=== PATIENT | male | born 1970 | race Caucasian/White ===

== ENCOUNTER 2017-01-18 11:33 | Inpatient (IN) | payer SELFPAY ==
[~2017-01-18] VITALS: Ht 193 cm; Wt 111.0 kg
[2017-01-18 12:42] LABS: HEMATOCRIT 44.7 % (38.0-50.0); MCH 28.8 PG (29.0-34.0); MCHC 32.2 G/DL (30.0-36.0); MCV 89.4 FL (86-99); MEAN PLAT.VOLUME 9.3 uM^3 (9.0-12.4); PLATELET COUNT 366 K/uL (156-360); RBC DIS.WIDTH-CV 14.9 % (11.8-14.6); RBC DIS.WIDTH-SD 49.1 % (39-53); WHITE BLOOD COUNT 8.1 K/uL (4.1-10.2)
[2017-01-18 12:52] LABS: CHLORIDE 105 mEq/L (99-109); POTASSIUM 4.7 mEq/L (3.7-5.4); SODIUM 137 mEq/L (136-147)
[2017-01-18 12:54] LABS: GLUCOSE 103 mg/dL (70-99)
[2017-01-18 12:55] LABS: ANION GAP 9 MEQ/L (2-14)
[2017-01-18 12:56] LABS: TOTAL BILIRUBIN 0.6 mg/dL (0.0-1.0)
[2017-01-18 12:58] LABS: ALKALINE PHOSPHATASE 58 IU/L (3-129); GFR ESTIMATE (CALCULATED) > 59 mL/min/
[2017-01-18 12:59] LABS: UREA NITROGEN (BUN) 17 mg/dL (9-23)
[2017-01-18 14:17] LABS: INTER. NORMALIZED RATIO 1.1; PROTHROMBIN TIME 11.5 (9.2-11.2); PTT 35.2 (25-32)
[2017-01-18 15:00] LABS: ADD MIUA? NO; BILIRUBIN NEGATIVE; BLOOD NEGATIVE; COLOR YELLOW ((YELLOW)); GLUCOSE (STRIP) NEGATIVE; KETONES 5; LEUKOCYTES NEGATIVE; NITRITE NEGATIVE; PROTEIN (STRIP) NEGATIVE; SPECIFIC GRAVITY 1.045 (1.000-1.030); UCUL ADDED? NO; UROBILINOGEN 0.2 MG/DL (0.2-1.0)
[2017-01-18 15:11] LABS: AMPHETAMINE NEGATIVE (500 ng/mL); BARBITURATES NEGATIVE (200 ng/mL); BENZODIAZEPINES NEGATIVE (150 ng/mL); COCAINE PRESUMPTIVE POSITIVE (150 ng/mL); INTERNAL CONTROLS VALID? YES; METHADONE NEGATIVE (200 ng/mL); METHAMPHETAMINE NEGATIVE (500 ng/mL); OPIATES (MORPHINE) PRESUMPTIVE POSITIVE (100 ng/mL); OXYCODONE PRESUMPTIVE POSITIVE (100 ng/mL); PHENCYCLIDINE NEGATIVE (25 ng/mL); PROPOXYPHENE NEGATIVE (300 ng/mL); THC CANNABINOIDS PRESUMPTIVE POSITIVE (50 ng/mL); TRICYCLIC ANTIDEPRESSANTS NEGATIVE (300 ng/mL)
[2017-01-18 15:12] LABS: ADD MEDTOX COMMENT Y
[2017-01-18 15:18] LABS: DIRECT BILIRUBIN 0.3 mg/dL (0.0-0.3)
[2017-01-18 15:33] LABS: LIPASE > 4220 U/L (1.0-51.0)
[2017-01-18] MEDS ORDERED: VITAMIN C1000 MG PO (16:02)
[2017-01-18] MEDS ORDERED: AMINO ACID1 EACH PO (16:02)
[2017-01-18] MEDS ORDERED: DAILY VITE1 EAC1 PO (16:03)
[2017-01-18] MEDS ORDERED: B COMPLETE1 EACH PO (16:03)
[2017-01-18] MEDS ORDERED: FLAX OIL1000 MG PO (16:03)
[2017-01-18] MEDS ORDERED: GLUCOSAMINE CH1 EAC2 PO (16:03)
[2017-01-18] MEDS ORDERED: ICY HOT CREAM35.4 G1 TP (16:04)
[2017-01-18] MEDS ORDERED: ALEVE220 MG PO (16:04)
[2017-01-18] MEDS ORDERED: PROTEIN POWDER454 G1 PO (16:05)
[2017-01-18 16:53] VITALS: BP 127/58
[2017-01-18 19:18] VITALS: BP 133/63
[2017-01-18 23:53] VITALS: BP 129/67
[2017-01-19 03:58] VITALS: BP 130/66
[2017-01-19 05:55] LABS: HEMATOCRIT 38.8 % (38.0-50.0); MCH 28.6 PG (29.0-34.0); MCHC 31.4 G/DL (30.0-36.0); MCV 90.9 FL (86-99); MEAN PLAT.VOLUME 9.3 uM^3 (9.0-12.4); PLATELET COUNT 315 K/uL (156-360); RBC DIS.WIDTH-CV 15.2 % (11.8-14.6); RBC DIS.WIDTH-SD 50.4 % (39-53); RED BLOOD COUNT 4.27 M/uL (4.00-5.50); WHITE BLOOD COUNT 6.4 K/uL (4.1-10.2)
[2017-01-19 06:13] LABS: ALKALINE PHOSPHATASE 47 IU/L (3-129); ANION GAP 6 MEQ/L (2-14); CHLORIDE 108 MEQ/L (99-109); GFR ESTIMATE (CALCULATED) > 59 mL/min/; GLUCOSE 99 mg/dL (70-99); POTASSIUM 4.3 MEQ/L (3.7-5.4); SAMPLE HEMOLYSIS CHECK 0; SAMPLE ICTERIC CHECK 0; SAMPLE LIPEMIA CHECK 0; SODIUM 138 MEQ/L (136-147); TOTAL BILIRUBIN 0.4 MG/DL (0.0-1.0); UREA NITROGEN (BUN) 14 mg/dL (9-23)
[2017-01-19 07:37] VITALS: BP 118/64
[2017-01-19 11:15] VITALS: BP 119/62
[2017-01-19 15:07] VITALS: BP 139/79
[2017-01-19 19:39] VITALS: BP 123/62
[2017-01-19 23:13] VITALS: BP 142/71
[2017-01-20 04:30] VITALS: BP 122/64
[2017-01-20 05:03] LABS: HEMATOCRIT 42.1 % (38.0-50.0); MCH 28.6 PG (29.0-34.0); MCHC 31.8 G/DL (30.0-36.0); MEAN PLAT.VOLUME 8.9 uM^3 (9.0-12.4); PLATELET COUNT 391 K/uL (156-360); RBC DIS.WIDTH-CV 15.1 % (11.8-14.6); RBC DIS.WIDTH-SD 50.1 % (39-53); RED BLOOD COUNT 4.68 M/uL (4.00-5.50); WHITE BLOOD COUNT 6.1 K/uL (4.1-10.2)
[2017-01-20 05:19] LABS: CHLORIDE 106 mEq/L (99-109); POTASSIUM 4.7 mEq/L (3.7-5.4); SODIUM 140 mEq/L (136-147)
[2017-01-20 05:21] LABS: GLUCOSE 100 mg/dL (70-99)
[2017-01-20 05:23] LABS: ANION GAP 9 MEQ/L (2-14)
[2017-01-20 05:25] LABS: ALKALINE PHOSPHATASE 65 IU/L (3-129); GFR ESTIMATE (CALCULATED) > 59 mL/min/
[2017-01-20 05:26] LABS: UREA NITROGEN (BUN) 12 mg/dL (9-23)
[2017-01-20 05:28] LABS: LIPASE 138 U/L (1.0-51.0)
[2017-01-20 05:29] LABS: TOTAL BILIRUBIN 0.4 mg/dL (0.0-1.0)
[2017-01-20 08:06] VITALS: BP 133/69
[2017-01-20 15:31] VITALS: BP 128/77
[2017-01-20 20:04] VITALS: BP 134/60
[2017-01-20 23:53] VITALS: BP 134/77
[2017-01-21] VITALS (7 sets, daily range): BP systolic 123–149; BP diastolic 60–79
[2017-01-21 05:38] LABS: ALKALINE PHOSPHATASE 57 IU/L (3-129); ANION GAP 8 MEQ/L (2-14); CHLORIDE 104 MEQ/L (99-109); GFR ESTIMATE (CALCULATED) > 59 mL/min/; GLUCOSE 119 mg/dL (70-99); LIPASE 104 U/L (1.0-51.0); MCH 28.5 PG (29.0-34.0); MCHC 31.8 G/DL (30.0-36.0); MCV 89.7 FL (86-99); MEAN PLAT.VOLUME 9.2 uM^3 (9.0-12.4); PLATELET COUNT 373 K/uL (156-360); POTASSIUM 4.4 MEQ/L (3.7-5.4); RBC DIS.WIDTH-CV 14.8 % (11.8-14.6); RBC DIS.WIDTH-SD 48.5 % (39-53); RED BLOOD COUNT 4.46 M/uL (4.00-5.50); SAMPLE HEMOLYSIS CHECK 0; SAMPLE ICTERIC CHECK 0; SAMPLE LIPEMIA CHECK 0; SODIUM 139 MEQ/L (136-147); TOTAL BILIRUBIN 0.4 MG/DL (0.0-1.0); UREA NITROGEN (BUN) 13 mg/dL (9-23); WHITE BLOOD COUNT 6.9 K/uL (4.1-10.2)
[2017-01-22 04:18] VITALS: BP 137/74
[2017-01-22 05:04] LABS: CHLORIDE 105 mEq/L (99-109); POTASSIUM 4.8 mEq/L (3.7-5.4); SODIUM 139 mEq/L (136-147)
[2017-01-22 05:06] LABS: GLUCOSE 100 mg/dL (70-99)
[2017-01-22 05:07] LABS: ANION GAP 9 MEQ/L (2-14)
[2017-01-22 05:08] LABS: TOTAL BILIRUBIN 0.4 mg/dL (0.0-1.0)
[2017-01-22 05:09] LABS: ALKALINE PHOSPHATASE 62 IU/L (3-129)
[2017-01-22 05:10] LABS: GFR ESTIMATE (CALCULATED) > 59 mL/min/
[2017-01-22 05:11] LABS: UREA NITROGEN (BUN) 11 mg/dL (9-23)
[2017-01-22 05:13] LABS: LIPASE 94 U/L (1.0-51.0)
[2017-01-22 08:03] VITALS: BP 135/71
[2017-01-22 11:47] VITALS: BP 129/69
[2017-01-22 16:49] VITALS: BP 127/69
[2017-01-22 17:05] VITALS: BP 127/69
[2017-01-22 20:19] VITALS: BP 119/62
[2017-01-23] VITALS (7 sets, daily range): BP systolic 115–146; BP diastolic 56–82
[2017-01-23 05:54] LABS: ANION GAP 10 MEQ/L (2-14); CHLORIDE 100 MEQ/L (99-109); GFR ESTIMATE (CALCULATED) > 59 mL/min/; POTASSIUM 4.3 MEQ/L (3.7-5.4); SAMPLE HEMOLYSIS CHECK 0; SAMPLE ICTERIC CHECK 0; SAMPLE LIPEMIA CHECK 0; SODIUM 136 MEQ/L (136-147); UREA NITROGEN (BUN) 16 mg/dL (9-23)
[2017-01-23 05:58] LABS: GLUCOSE 155 mg/dL (70-99)
[2017-01-23 06:14] LABS: HEMATOCRIT 42.4 % (38.0-50.0); MCH 28.6 PG (29.0-34.0); MCHC 32.3 G/DL (30.0-36.0); MCV 88.5 FL (86-99); MEAN PLAT.VOLUME 9.2 uM^3 (9.0-12.4); RBC DIS.WIDTH-CV 14.9 % (11.8-14.6); RBC DIS.WIDTH-SD 48.8 % (39-53); RED BLOOD COUNT 4.79 M/uL (4.00-5.50)
[2017-01-23 06:20] LABS: PLATELET COUNT 521 K/uL (156-360); WHITE BLOOD COUNT 13.9 K/uL (4.1-10.2)
[2017-01-24 04:17] VITALS: BP 126/58
[2017-01-24 08:20] VITALS: BP 139/76
[2017-01-24 12:01] VITALS: BP 123/56
[2017-01-24 16:53] VITALS: BP 127/72
[2017-01-24 19:10] VITALS: BP 119/58
[2017-01-24 23:36] VITALS: BP 115/59
[2017-01-25 04:59] VITALS: BP 126/60
[2017-01-25 06:21] LABS: HEMATOCRIT 37.8 % (38.0-50.0); MCH 28.6 PG (29.0-34.0); MCHC 31.5 G/DL (30.0-36.0); MCV 90.9 FL (86-99); PLATELET COUNT 402 K/uL (156-360); RBC DIS.WIDTH-CV 15.4 % (11.8-14.6); RBC DIS.WIDTH-SD 51.3 % (39-53); RED BLOOD COUNT 4.16 M/uL (4.00-5.50)
[2017-01-25 06:30] LABS: WHITE BLOOD COUNT 8.1 K/uL (4.1-10.2)
[2017-01-25 06:52] LABS: ALKALINE PHOSPHATASE 55 IU/L (3-129); ANION GAP 7 MEQ/L (2-14); CHLORIDE 104 MEQ/L (99-109); GFR ESTIMATE (CALCULATED) > 59 mL/min/; LIPASE 65 U/L (1.0-51.0); POTASSIUM 4.3 MEQ/L (3.7-5.4); SAMPLE HEMOLYSIS CHECK 0; SAMPLE ICTERIC CHECK 0; SAMPLE LIPEMIA CHECK 0; SODIUM 138 MEQ/L (136-147); TOTAL BILIRUBIN 0.4 MG/DL (0.0-1.0); UREA NITROGEN (BUN) 15 mg/dL (9-23)
[2017-01-25 06:57] LABS: GLUCOSE 95 mg/dL (70-99)
[2017-01-25 07:57] VITALS: BP 128/64
[2017-01-25 11:34] VITALS: BP 127/66
[2017-01-25 16:55] VITALS: BP 143/76
[2017-01-25 21:00] VITALS: BP 152/78
[2017-01-25 23:34] VITALS: BP 132/80
[2017-01-26 04:23] VITALS: BP 141/71
[2017-01-26 08:23] VITALS: BP 133/78
[2017-01-26 12:33] VITALS: BP 131/66
[2017-01-26] MEDS ORDERED: OXYCODONE HCL5 MG PO (12:59)
[2017-01-26] MEDS ORDERED: GABAPENTIN300 MG PO (12:59)
[2017-01-26] MEDS ORDERED: OXYCONTIN15 MG PO (12:59)
[2017-01-26] MEDS ORDERED: OXYCONTIN10 MG PO (13:39)
[2017-01-26] MEDS ORDERED: PERCOCET 7.51 TABLET PO (13:39)
== END 2017-01-26 14:55 | disposition home or self-care (01) | DRG 164 ==
LOC: EME → TRA 11:33 → EME 11:33 → 3EAST 15:13 → EDOF 15:13 → 3EAST 16:39
PROVIDERS: Emergency Medicine; Surgery; Thoracic Surgery (Cardiothoracic Vascular Surgery)
DX: S27.1XXA Traumatic hemothorax, initial encounter (principal); S27.809A Unspecified injury of diaphragm, initial encounter; S22.41XA Multiple fractures of ribs, right side, initial encounter for closed fracture; W17.89XA Other fall from one level to another, initial encounter; Y92.018 Other place in single-family (private) house as the place of occurrence of the external cause; R74.8 Abnormal levels of other serum enzymes; F19.10 Other psychoactive substance abuse, uncomplicated; F11.10 Opioid abuse, uncomplicated; F14.10 Cocaine abuse, uncomplicated; F12.10 Cannabis abuse, uncomplicated; J95.811 Postprocedural pneumothorax; E88.09 Other disorders of plasma-protein metabolism, not elsewhere classified; K83.8 Other specified diseases of biliary tract; J98.11 Atelectasis; E86.0 Dehydration; R26.2 Difficulty in walking, not elsewhere classified; G89.29 Other chronic pain; M54.9 Dorsalgia, unspecified; J90 Pleural effusion, not elsewhere classified; R63.0 Anorexia; G89.18 Other acute postprocedural pain; K59.00 Constipation, unspecified
CPT/HCPCS: 70450; 71010; 71020; 71260; 72125; 72129; 72132; 74177; 74181; 80048; 80053; 81003; 82248; 83605; 83690; 84999; 85027; 85610; 85730; 86850; 86900; 86901; 99281; 99284; J0690; J1100; J1170; J1650; J1885; J2250; J2270; J2405; J2710; J3010; J7120

== ENCOUNTER 2017-06-06 19:39 | Inpatient (IN) | payer BC, OTHER ==
[~2017-06-06] VITALS: Ht 193 cm; Wt 114.5 kg
[~2017-06-06 19:39] MED LIST: ALEVE220 MG PO; AMINO ACID1 EACH PO; B COMPLETE1 EACH PO; DAILY VITE1 EAC1 PO; FLAX OIL1000 MG PO; GABAPENTIN300 MG PO; GLUCOSAMINE CH1 EAC2 PO; ICY HOT CREAM35.4 G1 TP; OXYCODONE HCL5 MG PO; OXYCONTIN10 MG PO; OXYCONTIN15 MG PO; PERCOCET 7.51 TABLET PO; PROTEIN POWDER454 G1 PO; VITAMIN C1000 MG PO
[2017-06-06 20:29] LABS: EOSINOPHIL (%) 0.8 % (0-5); EOSINOPHIL COUNT 0.1 K/uL (0-0.3); HEMATOCRIT 47.3 % (38.0-50.0); IMMATURE GRANULOCYTE (%) 0.3 % (0.0-0.7); INSTRUMENT ABS NEUTROPHIL CT 8.2 K/uL; LYMPHOCYTE COUNT 1.1 K/uL (1.0-2.8); MCHC 32.3 G/DL (30.0-36.0); MCV 86.5 FL (86-99); MEAN PLAT.VOLUME 8.9 uM^3 (9.0-12.4); MONOCYTE (%) 8.8 % (3-12); MONOCYTE COUNT 0.9 K/uL (0-0.8); NEUTROPHIL (%) 79.4 % (45-76); NEUTROPHIL COUNT 8.2 K/uL (1.8-6.4); PLATELET COUNT 275 K/uL (156-360); RBC DIS.WIDTH-CV 15.4 % (11.8-14.6); RBC DIS.WIDTH-SD 48.7 % (39-53); RED BLOOD COUNT 5.47 M/uL (4.00-5.50); WHITE BLOOD COUNT 10.4 K/uL (4.1-10.2)
[2017-06-06 20:35] LABS: CHLORIDE 102 mEq/L (99-109); POTASSIUM 4.6 mEq/L (3.7-5.4); SODIUM 137 mEq/L (136-147)
[2017-06-06 20:37] LABS: GLUCOSE 98 mg/dL (70-99)
[2017-06-06 20:38] LABS: ANION GAP 8 MEQ/L (2-14)
[2017-06-06 20:41] LABS: GFR ESTIMATE (CALCULATED) > 59 mL/min/
[2017-06-06 20:42] LABS: UREA NITROGEN (BUN) 24 mg/dL (9-23)
[2017-06-06] MEDS ORDERED: ADVIL,NUPRIN,M200 MG PO (23:18)
[2017-06-07 03:55] VITALS: BP 132/59
[2017-06-07 07:44] VITALS: BP 106/53
[2017-06-07 09:00] LABS: EOSINOPHIL COUNT 0.1 K/uL (0-0.3); HEMATOCRIT 43.1 % (38.0-50.0); IMMATURE GRANULOCYTE (%) 0.3 % (0.0-0.7); INSTRUMENT ABS NEUTROPHIL CT 4.7 K/uL; LYMPHOCYTE COUNT 1.3 K/uL (1.0-2.8); MCH 27.8 PG (29.0-34.0); MCV 86.7 FL (86-99); MEAN PLAT.VOLUME 9.1 uM^3 (9.0-12.4); MONOCYTE (%) 12.4 % (3-12); MONOCYTE COUNT 0.9 K/uL (0-0.8); NEUTROPHIL (%) 67.5 % (45-76); NEUTROPHIL COUNT 4.7 K/uL (1.8-6.4); PLATELET COUNT 249 K/uL (156-360); RBC DIS.WIDTH-CV 15.8 % (11.8-14.6); RBC DIS.WIDTH-SD 49.3 % (39-53); RED BLOOD COUNT 4.97 M/uL (4.00-5.50); WHITE BLOOD COUNT 6.9 K/uL (4.1-10.2)
[2017-06-07 09:29] LABS: ANION GAP 6 MEQ/L (2-14); CHLORIDE 106 MEQ/L (99-109); GFR ESTIMATE (CALCULATED) > 59 mL/min/; GLUCOSE 84 mg/dL (70-99); POTASSIUM 4.6 MEQ/L (3.7-5.4); SAMPLE HEMOLYSIS CHECK 0; SAMPLE ICTERIC CHECK 0; SAMPLE LIPEMIA CHECK 0; SODIUM 138 MEQ/L (136-147); UREA NITROGEN (BUN) 22 mg/dL (9-23)
[2017-06-07 16:17] VITALS: BP 134/62
[2017-06-07 22:57] VITALS: BP 132/64
[2017-06-08 06:04] LABS: EOSINOPHIL (%) 3.7 % (0-5); EOSINOPHIL COUNT 0.2 K/uL (0-0.3); HEMATOCRIT 42.8 % (38.0-50.0); IMMATURE GRANULOCYTE (%) 0.2 % (0.0-0.7); INSTRUMENT ABS NEUTROPHIL CT 2.2 K/uL; LYMPHOCYTE COUNT 1.5 K/uL (1.0-2.8); MCH 28.9 PG (29.0-34.0); MCHC 32.7 G/DL (30.0-36.0); MCV 88.2 FL (86-99); MEAN PLAT.VOLUME 9.6 uM^3 (9.0-12.4); MONOCYTE (%) 14.1 % (3-12); MONOCYTE COUNT 0.6 K/uL (0-0.8); NEUTROPHIL (%) 47.8 % (45-76); NEUTROPHIL COUNT 2.2 K/uL (1.8-6.4); PLATELET COUNT 235 K/uL (156-360); RBC DIS.WIDTH-CV 15.5 % (11.8-14.6); RBC DIS.WIDTH-SD 50.2 % (39-53); RED BLOOD COUNT 4.85 M/uL (4.00-5.50); WHITE BLOOD COUNT 4.6 K/uL (4.1-10.2)
[2017-06-08 08:02] VITALS: BP 134/89
[2017-06-08 09:15] LABS: ADD MIUA? NO; BILIRUBIN NEGATIVE; BLOOD NEGATIVE; COLOR YELLOW ((YELLOW)); GLUCOSE (STRIP) NEGATIVE; KETONES NEGATIVE; LEUKOCYTES NEGATIVE; NITRITE NEGATIVE; PROTEIN (STRIP) NEGATIVE; UROBILINOGEN 0.2 MG/DL (0.2-1.0)
[2017-06-08 09:48] LABS: AMPHETAMINES QUANT VALUE 0 NG/ML; BARBITUATES QUANT VALUE 0 NG/ML; BENZODIAZEPINES QUANT VALUE 0 NG/ML; BENZODIAZEPINES, URINE SCREEN Negative (200 ng/mL); MARIJUANA QUANT VALUE 0 NG/ML; PHENCYCLIDINE QUANT VALUE 0 NG/ML
[2017-06-08 10:45] LABS: GFR ESTIMATE (CALCULATED) > 59 mL/min/; UREA NITROGEN (BUN) 16 mg/dL (9-23)
[2017-06-08 10:47] LABS: VANCOMYCIN, TROUGH 8.4 MCG/ML (10-20)
[2017-06-08 15:40] VITALS: BP 120/54
[2017-06-08 22:31] VITALS: BP 150/73
[2017-06-09 08:10] VITALS: BP 134/75
[2017-06-09 15:58] VITALS: BP 131/70
[2017-06-10 00:19] VITALS: BP 140/69
[2017-06-10 08:47] VITALS: BP 124/70
[2017-06-10] MEDS ORDERED: AUGMENTIN875 MG PO (09:56)
[2017-06-10] MEDS ORDERED: BACTRIM,SEPT1 TABLET PO (09:56)
== END 2017-06-10 11:58 | disposition home or self-care (01) | DRG 581 ==
LOC: RME 19:39 → EME 19:39 → EDOF 06-07 01:51 → 5EAST 06-07 01:51 → ENRESERV 06-07 01:59 → 5EAST 06-07 03:27
PROVIDERS: Hospitalist; Physician Assistant; Student in an Organized Health Care Education/Training Program
PROC: 0J9F0ZZ Drainage of Left Upper Arm Subcutaneous Tissue and Fascia, Open Approach (ICD-10-PCS; principal; 2017-06-07)
DX: L03.114 Cellulitis of left upper limb (principal); L02.414 Cutaneous abscess of left upper limb; Z79.52 Long term (current) use of systemic steroids; Z91.81 History of falling; Z82.49 Family history of ischemic heart disease and other diseases of the circulatory system
CPT/HCPCS: 73110; 73201; 80048; 80202; 80306 90; 81003; 82565; 83605; 84520; 85025; 87040; 87070; 87075; 87076; 87205; 93971; 99281; 99285; J0295; J1650; J1885; J2270; J2543; J3370; J7030; J7040; J7050